=== PATIENT | female | born 1965 | race Two or more races ===

== ENCOUNTER → 2024-06-13 | Outpatient (CLI) | payer MEDICAID, SELFPAY ==
--- NOTE | 2024-06-13 13:30 | XR_ITS ---
Examination: CT chest, without intravenous contrast. Sagittal and coronal 2-D reconstructions. Exam date and time: June 13, 2024 1409 hours COMPARISON: May 17, 2023 INDICATIONS: Coughing 7 years Cavitary parenchymal disease left upper lobe including the lingular segment on CT chest study May 17, 2023 CTDI:vol (mGy) 9.04 DLP: (mGycm) 312 Technique: Multiple 3.0 mm axial sections of the chest to been obtained. Bone and lung density settings are obtained. Sagittal and coronal 2-D reconstructions have been obtained. Low dose protocols were performed. One or more of the following dose reduction techniques were used; automated exposure control, adjustment of the mA and/or KV according to patient size, use of iterative reconstruction technique. Findings: No thoracic aortic aneurysm dilatation Pulmonary artery segments are not enlarged No paratracheal tracheobronchial or bronchopulmonary adenopathy Enlarging mass in the left midlung, 17 mm No pneumonia or pulmonary edema or pleural disease Small liver calcifications Contracted gallbladder No pancreatic or adrenal mass No renal or ureteral calculi IMPRESSION: Enlarging mass in the left midlung, currently 17 mm, differential would include lung carcinoma, clinical correlation advised
== END | disposition home or self-care (01) ==
PROVIDERS: PCP Physician Assistant; Referring Provider Specialist; Visit Provider Specialist
DX: R91.8 Other nonspecific abnormal finding of lung field (principal); R05.8 Other specified cough
CPT/HCPCS: 71250

== ENCOUNTER 2024-06-22 17:01 | Emergency (ER) | payer MEDICAID, SELFPAY ==
[2024-06-22 17:25] VITALS: BP 175/88; PULSE 93; RESP 16; TEMP 37.1; O2SAT 100; BMI 28.8
--- NOTE | 2024-06-22 17:25 | EKG_ITS ---
[facility] Test Date: 2024-06-22 Pat Name: TANGELA RIOS Department: Room: - Gender: Female [employer]: : 1965 Requested By: Taco Hernández Order Number: [id number] Reading MD: Taco Hernández Measurements Intervals [place] Rate: 96 P: 65 AL: 176 QRS: 57 QRSD: 93 T: 51 QT: 333 QTc: 423 Interpretive Statements SINUS RHYTHM Compared to ECG 05/28/2019 23:16:04 No significant changes /store/S0/[id number].pdf
--- NOTE | 2024-06-22 17:26 | XR_ITS ---
Examination: Abdomen sonogram, Limited Date and time of exam: 07/23/2023 2106 hrs. Indications: Epigastric pain beginning 4 days ago Technique: Real-time wick scale transabdominal sonographic images of the upper abdomen obtained. Findings: Normal gallbladder Normal common bile duct 0.3 cm Pancreatic head 2.8 cm Liver 13.7 cm smooth contour no focal liver lesions Normal hepatopedal portal venous flow Patent IVC Impression: Normal gallbladder No focal liver lesions
--- NOTE | 2024-06-22 17:26 | PD.EDRME ---
Rapid Medical Screening Exam RME Arrival date/time: 06/22/24 17:01 Chief Complaint: Abdominal Pain Time Seen by Provider: 06/22/24 17:04 Vital signs: Vital Signs Temperature 98.7 F 06/22/24 17:25 Pulse Rate 93 06/22/24 17:25 Respiratory Rate 16 06/22/24 17:25 Blood Pressure 175/88 H 06/22/24 17:25 Pulse Oximetry (%) 100 06/22/24 17:25 Oxygen Delivery Method Room Air 06/22/24 17:25 RME Narrative: Upper abdominal pain, bloating, reflux x3-4 days
[2024-06-22 17:38] LABS: Collection Type, Urine Clean Catch; Squamous Epithelial Cell,Urine 0 /hpf (0-5)
[2024-06-22 17:43] LABS: Bilirubin,Urine Negative (Negative); Blood,Urine Negative (Negative); Clarity,Urine Clear (Clear/Hazy); Color,Urine Colorless (Lt Yel-Yel); Glucose, Urine Negative (Negative); Ketones,Urine Negative (Negative); Leukocyte Esterase,Urine Negative (Negative); Nitrite,Urine Negative (Negative); PH,Urine 6.5 (5.0-7.0); Protein,Urine Negative (Neg - Trace); RBC,Urine < 1 /hpf (0-3); Specific Gravity,Urine 1.005 (1.001-1.035); Urobilinogen,Urine Negative mg/dL (0.0-1.0); WBC,Urine < 1 /hpf (0-5)
[2024-06-22 18:00] LABS: Basophils # (Auto) 0.1 Thou/mm3 (0.0-0.2); Basophils % (Auto) 1 % (0-2.5); Eosinophils # (Auto) 0.1 Thou/mm3 (0.0-0.5); Eosinophils % (Auto) 1 % (0-10); Hematocrit 39.1 % (36.0-46.0); Hemoglobin 12.5 g/dL (12.0-16.0); Immature Granulocytes % (Auto) 0 % (0-0); Immature Granulocytes Auto 0.03 Thou/mm3 (0.00-0.00); Lymphocytes # (Auto) 1.8 Thou/mm3 (1.0-4.8); Lymphocytes % (Auto) 19 % (10-50); Mean Corpuscular Hemoglobin 22.9 pg (25.0-35.0); Mean Corpuscular Volume 72 fL (80-100); Monocytes # (Auto) 0.7 Thou/mm3 (0.0-0.8); Monocytes % (Auto) 8 % (0-12); Neutrophils # (Auto) 6.5 Thou/mm3 (1.8-7.7); Neutrophils % (Auto) 71 % (37-80); Nucleated Red Blood Cell % 0 /100 WBC (0); Platelet Count 247 Thou/mm3 (140-440); RDW Standard Deviation 36.5 fL (36.4-46.3); Red Blood Count 5.46 Miln/mm3 (4.00-5.20); White Blood Count 9.1 Thou/mm3 (3.6-11.0)
[2024-06-22 18:17] LABS: Alanine Aminotransferase 14 U/L (10-49); Albumin/Globulin Ratio 1.8 (1.2-2.2); Alkaline Phosphatase 129 U/L (46-116); Anion Gap 6 (7-16); Aspartate Amino Transferase < 8 U/L (0-34); BUN/Creatinine Ratio 17 Ratio (12-20); Bilirubin,Total 0.3 mg/dL (0.3-1.2); Blood Urea Nitrogen 10 mg/dL (9-23); Carbon Dioxide 28.5 mMol/L (20.0-31.0); Chloride 97 mMol/L (98-107); Creatinine (Component) 0.6 mg/dL (0.6-1.3); Estimated Creatinine Clearance 103.4 mL/min (>60); Globulin 2.8 gm/dL (2.3-3.5); Glucose 112 mg/dL (74-106); Lipase 32 U/L (12-53); Osmolality,Calculated 262 (275-295); Potassium 3.9 mMol/L (3.4-5.1); Sodium 131 mMol/L (136-145); Total Protein 7.8 gm/dL (5.7-8.2); Troponin I < 0.002 ng/mL (0.0-0.045); eGFR > 60 See Note
[2024-06-22 20:11] VITALS: BP 188/83; PULSE 89; RESP 17; TEMP 36.9; O2SAT 99
--- NOTE | 2024-06-22 21:37 | EDNOTE_ITS ---
<Statement entered by Gisel Sloan MD - 06/23/24 19:39> As co-signing physician, I was present and available for consult prn. I concur with the plan and care as documented by the midlevel provider. ED Abdominal Pain RME/HPI General Chief Complaint: Abdominal Pain Stated complaint: right upper ab pain x 4 days/ sent by pcp Time seen by provider: 06/22/24 17:04 Arrival date/time: 06/22/24 17:01 RME / HPI RME / HPI narrative: 59-year-old female patient with significant history of hypertension, gluten allergy came in for evaluation regarding right upper quadrant pain. This been ongoing for the last 4 days, described as burning-like sensation, severity moderate. Associated with abdominal distention. Patient denies any fever. Denies any vomiting denies any other complaints. Patient was sent by PCP for further management. Related Data Home Medications ?Medication ?Instructions ?Recorded ?Confirmed carbamazepine 200 mg tablet 200 mg PO QID 10/13/18 amlodipine PO 01/22/20 01/22/20 Previous Rx's ?Medication ?Instructions ?Recorded pantoprazole 40 mg tablet,delayed 40 mg PO QDAY #20 tabs 06/22/24 release (Protonix) Allergies Allergy/AdvReac Type Severity Reaction Status Date / Time acetaminophen [From Vicodin] AdvReac Severe Dizziness Verified 06/22/24 17:03 hydrocodone [From Vicodin] AdvReac Severe Dizziness Verified 06/22/24 17:03 Review of Systems Review of Systems Narrative Review of Systems: Review of system reviewed and within normal limits except mentioned in HPI ED Exam Narrative Physical exam: VITAL SIGNS: Reviewed. GENERAL APPEARANCE: Alert and interactive, follows commands, no acute distress, HEAD AND FACE: Non-traumatic. ENT: PERRL, pink conjunctivitis, eyelid no trauma, Mucous membrane moist. NECK: Supple, nontender, no nuchal rigidity. CHEST: No tenderness, no crepitus, no paradoxical movement, no retractions. LUNGS: Clear, well ventilated, symmetric, no rales, no wheezing, no ronchi, no stridor, good breath sounds bilaterally. HEART: Regular rate, regular rhythm, no murmur, no gallops. ABDOMEN: Soft, positive bowel sounds, nondistended, no guarding, upper abdominal tenderness, no rebound, no masses, RECTAL: Deferred. GENITAL: Deferred. NEUROLOGICAL: Gross motor function intact sensory function intact, Appropriate for age. MUSCULOSKELETAL: low back nontender, full range of motion. EXTREMITIES: Nontender, full range of motion. SKIN: Color pink, dry, no rash, no lacerations, no abrasions, no contusions. LYMPHATICS: Deferred. Course Quality Measures none Orders Category Date Time Status EKG (ED ONLY) *Do not use* NOW Care 06/22/24 17:26 Completed EKG (ED Only) Stat Exams 06/22/24 17:25 Draft US gall bladder Stat Exams 06/22/24 17:26 Completed CBC Stat Lab 06/22/24 17:35 Completed CMP [Comprehensive Metabolic Panel] Stat Lab 06/22/24 17:35 Completed Lipase Stat Lab 06/22/24 17:35 Completed Troponin I Stat Lab 06/22/24 17:35 Completed UA [Urinalysis] Stat Lab 06/22/24 17:33 Completed Vital Signs Vital signs: Vital Signs Temperature 98.7 F 06/22/24 17:25 Pulse Rate 93 06/22/24 17:25 Respiratory Rate 16 06/22/24 17:25 Blood Pressure 175/88 H 06/22/24 17:25 Pulse Oximetry (%) 100 06/22/24 17:25 Oxygen Delivery Method Room Air 06/22/24 17:25 Abdominal Pain MDM MDM Narrative MDM Narrative:: 59-year-old female patient with significant history of hypertension, gluten allergy came in for evaluation regarding right upper quadrant pain. This been ongoing for the last 4 days, described as burning-like sensation, severity moderate. Associated with abdominal distention. Patient denies any fever. Denies any vomiting denies any other complaints. Patient was sent by PCP for further management. Ultrasound of the gallbladder came back normal. The rest of the labs unremarkable. Patient's symptoms could be secondary to intake of gluten since patient mention earlier that he ate some bread which is not gluten-free. Patient data External records reviewed:: None Clinical information provided by:: patient Social determinants that could affect healthcare access:: none Patient has the following chronic illnesses:: Hypertension How is presenting disease/condition affected by chronic disease/condition?: uneffected by Evaluation data The following diagnostics were reviewed and interpreted by me:: lab results and radiology exam(s) Lab and/or radiology exams considered but not ordered:: None Interpretation Summary: Patient's workup today all came back unremarkable. Lipase is normal urinalysis no UTI. Medications / Prescriptions Medications or Prescriptions considered but not ordered:: None Medication administrations:: None Consultations Consultation(s) initiated? (list below): No Diagnosis Differential diagnosis abdominal pain: abdominal pain and gastroenteritis Most likely diagnosis given after review of the tests above:: Right upper quadrant pain, gluten allergy Admission Indicated Admission indicated?: not indicated Explain why admission is indicated or not indicated:: Stable Admission Request Was there a request for admission?: No Disposition Plan Disposition Plan: Discharge Discharge Attestation Discharge Attestation: The patient given an opportunity to ask questions and understood the discharge instructions. Discharge instructions specifically effects, indications for sooner follow up or return to the emergency department, and the expected course of current diagnosis. Patient condition: Stable Discharge Plan Plan Patient Disposition: HOME (Self Care) Disposition Comment: Stable Prescriptions/Referrals Prescriptions/Med Rec: New pantoprazole [Protonix] 40 mg tablet,delayed release (DR/EC) 40 mg PO QDAY Qty: 20 0RF No Action carbamazepine 200 mg tablet 200 mg PO QID amlodipine PO Referrals: Mor Valdes PA-C [Primary Care Provider] - In 1 week Problem List Clinical Impression: Abdominal pain, Allergy to gluten Patient/Caregiver Discharge Instructions Discharge Activity: activity as tolerated Education Materials: ED Food Allergy Additional Instructions: Thank you for the opportunity for serving you today. You are stable for dis charged . You are advised to: Follow-up with your PCP in 1 to 2 days Return to ED for worsening of symptoms Increase oral fluids Take medication as prescribed Please avoid eating food containing gluten. Print Language: Vincentian Stand Alone Forms: Hilda Award Info., Patient Portal Info Letter [place] Supervising Physician [place] Supervising Physician: MD Luther
== END 2024-06-22 22:10 | disposition home or self-care (01) ==
PROVIDERS: Physician Assistant; Emergency Provider Emergency Medicine; PCP Physician Assistant
DX: K90.41 Non-celiac gluten sensitivity (principal); R10.11 Right upper quadrant pain; R10.13 Epigastric pain; I10 Essential (primary) hypertension
CPT/HCPCS: 36415; 76705; 80053; 81001; 83690; 84484; 85025; 93005; 99284